=== PATIENT | female | born 1995 | race Caucasian/White ===

== ENCOUNTER 2019-09-02 20:41 | Emergency (ER) | payer SELFPAY ==
[2019-09-02 20:43] VITALS: BP 138/81; PULSE 94; RESP 20; TEMP 36.6; O2SAT 100
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
[2019-09-02 22:07] VITALS: PULSE 80; RESP 20; O2SAT 100
== END 2019-09-02 22:10 | disposition home or self-care (01) ==
PROVIDERS: Emergency Provider Emergency Medicine
DX: S91.011A Laceration without foreign body, right ankle, initial encounter (principal); Z87.440 Personal history of urinary (tract) infections; F17.200 Nicotine dependence, unspecified, uncomplicated; W26.8XXA Contact with other sharp object(s), not elsewhere classified, initial encounter
CPT/HCPCS: 12001; 99282

== ENCOUNTER 2020-03-06 16:33 | Emergency (ER) | payer OTHER, SELFPAY ==
[2020-03-06 16:43] VITALS: BP 132/72; PULSE 87; RESP 16; TEMP 36.8; O2SAT 100
--- NOTE | 2020-03-06 16:59 | ED.GENADULT ---
HPI - General Adult General Chief complaint: Ear Stated complaint: Ear pain Source: patient Mode of arrival: ambulatory Limitations: no limitations History of Present Illness HPI narrative: Patient is a 24-year-old female who presents complaining of left ear pain x2 to 3 days. Patient also reports sinus pain and pressure x2 weeks. She denies cough she denies fever, she denies known Covid exposure. complaint: Left ear pain Related Data Allergies Allergy/AdvReac Type Severity Reaction Status Date / Time clindamycin Allergy Mild Rash Verified 03/06/20 16:37 Review of Systems Review of Systems: Narrative: CONSTITUTIONAL: Denies fever, chills, or sweats. EYES: Denies visual changes, redness, or discharge. ENT: Denies rhinorrhea, congestion, sore throat, reports left otalgia and facial pressure. CARDIOVASCULAR: Denies chest pain, palpitations, or edema. RESPIRATORY: Denies cough or dyspnea. GASTROINTESTINAL: Denies abdominal pain, nausea, vomiting, or diarrhea. GENITOURINARY: Denies dysuria or hematuria. SKIN: Denies rash or itching. MUSCULOSKELETAL: Denies back pain, joint pain, or myalgia. NEUROLOGIC: Denies headache, numbness, dizziness, or weakness. PSYCHIATRIC: Denies anxiety or depression. [facility] Past Medical History Medical History Erythema nodosum UTI (urinary tract infection) Surgical History Surgical History History of cholecystectomy Hx of tympanostomy tubes Social History Social History Smoking status: Current every day smoker Gender identity (if verbalized by the patient): Female Exam Narrative: Exam Narrative: GENERAL: Well-appearing, well-nourished, and in no acute distress. HEAD: Normocephalic, atraumatic. EYES: No redness or drainage. ENT: Mucous membranes pink and moist. Nares congested. Dislodged tube in left ear canal, impacted with wax, TM bulging and injected. Throat normal. Maxillary sinus pressure with palpation. Uvula midline. NECK: AROM. Supple. No lymphadenopathy. CHEST: No respiratory distress. EXTREMITIES: Normal range of motion. SKIN: Warm, dry, no rash. NEURO: No focal deficits. Alert and oriented x3. Gait steady. PSYCH: Normal affect. No signs of depression or anxiety. Course Vital Signs Vital signs: Vital Signs Temperature 36.8 C 03/06/20 16:43 Pulse Rate 87 03/06/20 16:43 Respiratory Rate 16 03/06/20 16:43 Blood Pressure 132/72 03/06/20 16:43 Pulse Oximetry 100 03/06/20 16:43 Temperature 36.8 C 03/06/20 16:43 Pulse Rate 87 03/06/20 16:43 Respiratory Rate 16 03/06/20 16:43 Blood Pressure 132/72 03/06/20 16:43 Pulse Oximetry 100 03/06/20 16:43 Medical Decision Making MDM Narrative Medical decision making narrative: Patient has left otitis media, sinusitis to be treated with antibiotics at this time. Patient is stable for discharge to home with outpatient follow-up. Patient aware the need to follow-up with in 7 to 10 days for recheck with ENT or PCP. Differential Diagnosis Differential Diagnosis: Otitis media, sinusitis, strep throat Vital Signs Vital Signs: Vital Signs Temperature 36.8 C 03/06/20 16:43 Pulse Rate 87 03/06/20 16:43 Respiratory Rate 16 03/06/20 16:43 Blood Pressure 132/72 03/06/20 16:43 Pulse Oximetry 100 03/06/20 16:43 Temperature 36.8 C 03/06/20 16:43 Pulse Rate 87 03/06/20 16:43 Respiratory Rate 16 03/06/20 16:43 Blood Pressure 132/72 03/06/20 16:43 Pulse Oximetry 100 03/06/20 16:43 Critical Care Time Critical Care Time Critical Care Time: No Discharge Plan Discharge Clinical Impression: Otitis media Qualifiers: Otitis media type: suppurative Chronicity: acute Laterality: left Recurrence: non-recurrent Spontaneous tympanic membrane rupture: without spontaneous rupture Qualified Code(s): H
== END 2020-03-06 17:18 | disposition home or self-care (01) ==
PROVIDERS: Emergency Provider Nurse Practitioner; PCP Family Medicine
DX: H66.002 Acute suppurative otitis media without spontaneous rupture of ear drum, left ear (principal); J01.00 Acute maxillary sinusitis, unspecified; F17.200 Nicotine dependence, unspecified, uncomplicated
CPT/HCPCS: 99213; G0463

== ENCOUNTER 2020-03-07 14:36 | Emergency (ER) | payer OTHER, SELFPAY ==
[2020-03-07 14:41] VITALS: BP 129/69; PULSE 94; RESP 18; TEMP 36.4; O2SAT 99
--- NOTE | 2020-03-07 15:06 | ED.EAR ---
HPI - Ear Problem General Chief complaint: Ear Stated complaint: left ear pain Time Seen by Provider: 03/07/20 14:40 Source: patient and old records reviewed Mode of arrival: ambulatory Limitations: no limitations History of Present Illness HPI Narrative: Patient presents with chief complaint of left ear pain that has been worsening over the past 3 to 4 days. She reports mild symptoms and congestion for 2 weeks. Patient was seen in urgent care yesterday and prescribed Augmentin as well as ofloxacin drops. Patient has tympanostomy tubes were then placed by Dr. Rogers. Patient states that the tube worked itself out. She was started on oflaxacin drops and augmentin yesterday. She states she wants something for pain. Patient was instructed to reach out to her ENT. She has not done so. Related Data Allergies Allergy/AdvReac Type Severity Reaction Status Date / Time clindamycin Allergy Mild Rash Verified 03/06/20 16:37 Review of Systems Review of Systems: Narrative: CONSTITUTIONAL: Denies fever, chills, or sweats. EYES: Denies visual changes, redness, or discharge. ENT: Reports otalgia Denies rhinorrhea, congestion, sore throat CARDIOVASCULAR: Denies chest pain, palpitations, or edema. RESPIRATORY: Denies cough or dyspnea. GASTROINTESTINAL: Denies abdominal pain, nausea, vomiting, or diarrhea. GENITOURINARY: Denies dysuria or hematuria. SKIN: Denies rash or itching. MUSCULOSKELETAL: Denies back pain, myalgia, or joint pain NEUROLOGIC: Denies headache, numbness, dizziness, or weakness. PSYCHIATRIC: Denies anxiety or depression. [facility] Past Medical History Medical History Erythema nodosum UTI (urinary tract infection) Surgical History Surgical History History of cholecystectomy Hx of tympanostomy tubes Social History Social History Smoking status: Current every day smoker Gender identity (if verbalized by the patient): Female Exam Narrative: Exam Narrative: GENERAL: Well-appearing, well-nourished. HEAD: Normocephalic, atraumatic. EYES: PERRLA and EOMI. ENT: Mucous membranes moist. There is wax in ears, unable to see entire TM, there is erythema to left TM, no fluid drainage or inflammation of ear canal. No pain with outer ear movement. NECK: Supple. No adenopathy or masses. No vertebral tenderness or loss of ROM. CHEST: Clear to auscultation. No respiratory distress. No wheezes rales or rhonchi HEART: Regular rate and rhythm. Normal peripheral pulses. ABDOMEN: Soft, nontender, nondistended, normal active bowel sounds. No bruises noted. EXTREMITIES: No acute changes in ROM. No edema. SKIN: Warm, dry, no rash. NEURO: No focal deficits. Alert and oriented x3. PSYCH: Normal mood and affect. Course Vital Signs Vital signs: Vital Signs Temperature 97.6 F 03/07/20 14:41 Pulse Rate 94 03/07/20 14:41 Respiratory Rate 18 03/07/20 14:41 Blood Pressure 129/69 03/07/20 14:41 Pulse Oximetry 99 03/07/20 14:41 Temperature 97.6 F 03/07/20 14:41 Pulse Rate 94 03/07/20 14:41 Respiratory Rate 18 03/07/20 14:41 Blood Pressure 129/69 03/07/20 14:41 Pulse Oximetry 99 03/07/20 14:41 Medical Decision Making MDM Narrative Medical decision making narrative: Patientinstructed of the need to follow up with her ENT. Patient states she is sure she is not and is offered ibuprofen or toradol injection. Patient is not abx treatment failure as they were just started yesterday. Her vitals are stable and she is afebrile. Vital Signs Vital Signs: Vital Signs Temperature 97.6 F 03/07/20 14:41 Pulse Rate 94 03/07/20 14:41 Respiratory Rate 18 03/07/20 14:41 Blood Pressure 129/69 03/07/20 14:41 Pulse Oximetry 99 03/07/20 14:41 Temperature 97.6 F 03/07/20 14:41 Pulse Rate 94 03/07/20 14:41 Resp
[2020-03-07] MEDS: IBUPROFEN 600 MG TABLET PO (15:11)
== END 2020-03-07 15:35 | disposition home or self-care (01) ==
PROVIDERS: Emergency Provider Family Medicine; PCP Family Medicine
DX: H66.92 Otitis media, unspecified, left ear (principal); Z87.440 Personal history of urinary (tract) infections; F17.200 Nicotine dependence, unspecified, uncomplicated
CPT/HCPCS: 99283; A9270

== ENCOUNTER 2020-05-21 01:59 | Outpatient (CLI) | payer OTHER, SELFPAY ==
[2020-05-21 18:37] LABS: SARS-CoV-2 RNA PCR Negative
== END 2020-05-21 02:00 | disposition home or self-care (01) ==
LOC: ANHCOVIDDT 02:00
PROVIDERS: PCP Family Medicine; Visit Provider Otolaryngology
DX: Z01.812 Encounter for preprocedural laboratory examination (principal); Z20.822 Contact with and (suspected) exposure to COVID-19
CPT/HCPCS: C9803; U0003; U0005

== ENCOUNTER 2020-05-24 01:52 | Day surgery (SDC) | payer OTHER, SELFPAY ==
[2020-05-14 14:28] VITALS: BMI 23.0
--- NOTE | 2020-05-22 11:57 | PM.IMHP ---
H&P: HPI History of Present Illness Date/Time: 05/22/20 11:57 Chief Complaint: ETD Narrative: Kaelyn Rubi is a 24 year old female with bilateral etd. Presents for planned surgical procedures. Review of Systems Constitutional: Constitutional: Denies fatigue, Denies fever(s) and Denies lethargy Eyes: Eyes: Denies blurry vision and Denies change in vision ENT: Reports as per HPI Cardiovascular: Cardiovascular: Denies chest pain Respiratory: Respiratory: Denies cough Endocrine: Endocrine: Denies fatigue Hematologic/Lymphatic: Hematologic/Lymphatic: Denies easy bleeding, Denies easy bruising and Denies lymphadenopathy Allergic/Immunologic: Allergic/Immunologic: Denies seasonal rhinorrhea PMF Past Medical History Medical History Erythema nodosum UTI (urinary tract infection) Surgical History Surgical History History of cholecystectomy Hx of tympanostomy tubes Social History Social History (Updated 03/11/20 @ 08:35 by Rebekah Chanel [facility]) Smoking packs per day: 1 Smoking cigarettes per day: 20.0 Years smoked: 10 Smoking pack-years: 10.00 Smoking status: Current every day smoker Tobacco type: cigarettes Second hand tobacco smoke exposure: Yes Alcohol intake: former Substance use: never Gender identity (if verbalized by the patient): Female Spiritual care concerns: No Meds Home Medications and Allergies Home Medications Medication Instructions Recorded Confirmed Type ofloxacin 10 drp OTIC (EAR) BID 7 Days #10 ml 03/06/20 05/14/20 Rx naproxen 500 mg PO BID PRN #20 tablet 03/07/20 05/14/20 Rx lorazepam 0.5 mg tablet 0.5 mg PO TID PRN 04/23/20 05/14/20 History Allergies Allergy/AdvReac Type Severity Reaction Status Date / Time clindamycin Allergy Mild Rash Verified 05/14/20 14:26 Exam Const: General: cooperative, healthy appearing, comfortable, well developed and alert HENMT: Head: normal to inspection, normocephalic and atraumatic Ears: hearing grossly normal bilaterally, external ears normal, TM's abnormal bilaterally (Left retracted, right with t tube) and EAC's normal General nose exam: Normal external nose present, Normal nares present, No nasal polyps present, Normal nasal mucous membranes and turbinates present and Normal septum present Face and sinus: normal facial exam Mouth: Yes Normal oral and palatal mucosa present, Yes lip normal, Yes tongue normal, Yes oropharynx normal and Yes moist mucous membranes Teeth and gingiva: dentition normal and gingiva normal Throat: posterior oropharynx normal, tonsils normal and uvula midline Eyes: General: appearance normal, both eyes and all related structures Periorbital: periorbital findings normal Eyelids: eyelids normal Conjunctivae: conjunctivae normal Sclera: sclerae normal Neck: Neck: normal visual inspection, full ROM and no lymphadenopathy Thyroid: thyroid normal Lymphatic: no lymphadenopathy noted Resp: Effort & Inspection: normal respiratory effort and able to speak in complete sentences Cardio: Jugular venous distension: no JVD Neuro: Cranial nerves: Yes CN's II-XII intact bilaterally Assessment and Plan Assessment and plan (1) ETD (eustachian tube dysfunction): Code(s): H69.80 - Other specified disorders of Eustachian tube, unspecified ear Status: Acute (2) History of placement of ear tubes: Code(s): Z96.22 - Myringotomy tube(s) status Status: Acute Assessment and Plan: OR for right tube removal and replacement, left myringotomy with t tube. Risks discussed included damage to facial nerve, bleeding, change in hearing, cholesteatoma, need for further procedures, and damage to surrounding structures. The patient voiced understanding and agreed.
--- NOTE | 2020-05-23 15:08 | WPDANESEPPF ---
Anes - Initial Pre Proc Eval Procedure: Operation Date: 05/24/20 07:30 Proposed Procedures p Bilateral Myringotomy,Insertion Of T-Tubes - Odilon López MD Date/Time: 05/23/20 15:08 Surgeon: Odilon López MD Pre Op Diagnosis: chronic otitis media Patient Data Age: 24 Gender: F Height: 1.6 m Weight: 59 kg Allergies Allergy/AdvReac Type Severity Reaction Status Date / Time clindamycin Allergy Mild Rash Verified 05/14/20 14:26 Home Medications Medication Instructions Recorded Confirmed Type ofloxacin 10 drp OTIC (EAR) BID 7 Days #10 ml 03/06/20 05/14/20 Rx naproxen 500 mg PO BID PRN #20 tablet 03/07/20 05/14/20 Rx lorazepam 0.5 mg tablet 0.5 mg PO TID PRN 04/23/20 05/14/20 History Patient hx anesthesia problems: none Family hx anesthesia problems: none PMFSH Past Medical History Medical History (Updated 05/23/20 @ 15:08 by Adolfo Rapp MD) Anxiety Depression Erythema nodosum Tobacco abuse UTI (urinary tract infection) Surgical History Surgical History (Updated 04/23/20 @ 14:21 by Odilon López MD) History of cholecystectomy Hx of tympanostomy tubes Social History Social History (Updated 03/11/20 @ 08:35 by Rebekah Chanel CMA) Smoking packs per day: 1 Smoking cigarettes per day: 20.0 Years smoked: 10 Smoking pack-years: 10.00 Smoking status: Current every day smoker Tobacco type: cigarettes Second hand tobacco smoke exposure: Yes Alcohol intake: former Substance use: never Living arrangements: with family Gender identity (if verbalized by the patient): Female Spiritual care concerns: No Anes - Eval Final PreProcedure Day of Procedure 05/23/20 15:08 Patient weight: normal Heart: regular rate and rhythm Lungs: clear to auscultation and normal air movement Airway: Mallampati scale class II Neurological: alert and oriented Last oral intake: >/= 8 hours ASA classification: II Emergent: no Anesthetic plan: proceed Anesthesia type and monitoring: general GIVS Informed Consent: The patient's anesthetic plan and its attendant risks and benefits were discussed with the patient/family/POA. Questions were solicited and answers provided to the satisfaction of the patient/family/POA.
[2020-05-24] VITALS (8 sets, daily range): BP systolic 98–140; BP diastolic 57–74; PULSE 58–80; RESP 12–18; TEMP 36–36.8; O2SAT 97–100
--- NOTE | 2020-05-24 06:56 | WPDHPUPDATE1 ---
History and Physical Update Update Date/Time: 05/24/20 06:56 History and Physical has been reviewed, including an updated exam of the patient. There are NO changes in the patient's condition. Risks, benefits, and alternatives have been discussed and questions answered. Patient agrees to proceed with procedure.
[2020-05-24] MEDS: ACETAMINOPHEN 500 MG TABLET 1000 MG PO (07:06)
[2020-05-24] MEDS: LACTATED RINGERS 1,000 ML 30 ML IV CONT (07:10)
[2020-05-24] MEDS: CIPROFLOXACIN HCL 0.3% OP SOLN 2.5 ML BTL 4 DROP EACH EAR (08:13)
--- NOTE | 2020-05-24 08:37 | PM.PROC ---
Procedure Note - Detailed Date of procedure: 05/24/20 Pre-op diagnosis: chronic otitis media Post-op diagnosis: same Procedure performed: Right-sided T-tube removal with insertion of new T-tube Left-sided myringotomy with T-tube insertion Description of procedure: The patient was correctly identified and consent was verified in the preoperative holding area. The patient was then brought to the operating room a time-out was performed. General anesthesia was induced in mask ventilation with maintained. The right ear was examined without a microscope and a T-tube was noted anteriorly this was gently removed and new tube was inserted. Of note the perforation appeared larger than the size of the tube was likely abutting the annulus. The left ear was then examined noted to be severely retracted. A myringotomy was made and T-tube inserted. Drop were placed bilaterally. This marked the end of the procedure. I performed all dictated portions. Care the patient was turned over to anesthesiology. Anesthesia: GLMA Surgeon: Odilon López MD Complications: No immediate complications Condition: stable Disposition: PACU
[2020-05-24] MEDS: HYDROmorphone HCL INJ (*CRX) 1 MG/ML SYR 0.25 MG IV PUSH ×4 (08:48→09:03)
[2020-05-24] MEDS: fentaNYL CITRATE INJ (*CRX) 100 MCG/2 ML VIAL 25 MCG IV PUSH (09:00)
[2020-05-24] MEDS: ONDANSETRON INJ 4 MG/2 ML VIAL IV PUSH (09:06)
[2020-05-24] MEDS: oxyCODONE HCL (*CRX) 5 MG TAB IR PO (09:34)
== END 2020-05-24 10:13 | disposition home or self-care (01) ==
PROVIDERS: PCP Family Medicine; Visit Provider Otolaryngology
PROC: (CPT 69436; principal; 2020-05-24 07:30)
DX: H66.93 Otitis media, unspecified, bilateral (principal); F41.8 Other specified anxiety disorders; F17.210 Nicotine dependence, cigarettes, uncomplicated
CPT/HCPCS: 69436; A9270; J1100; J1170; J2250; J2405; J2704; J3010; J7120

== ENCOUNTER 2020-06-01 15:30 | Emergency (ER) | payer OTHER, SELFPAY ==
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
[2020-06-01 15:40] VITALS: BP 151/70; PULSE 100; RESP 18; TEMP 36.9; O2SAT 96
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
[2020-06-01 17:07] VITALS: BP 112/65; PULSE 88; RESP 18; O2SAT 97
== END 2020-06-01 17:08 | disposition home or self-care (01) ==
LOC: ANHED 17:04
PROVIDERS: Emergency Provider General Practice; PCP Family Medicine
DX: S61.451A Open bite of right hand, initial encounter (principal); S71.151A Open bite, right thigh, initial encounter; S81.051A Open bite, right knee, initial encounter; S60.511A Abrasion of right hand, initial encounter; Y04.1XXA Assault by human bite, initial encounter
CPT/HCPCS: 73080; 73130; 99284

== ENCOUNTER → 2020-07-16 00:27 | Outpatient (CLI) | payer OTHER, SELFPAY ==
[2020-07-16 18:32] LABS: SARS-CoV-2 RNA PCR Negative
== END ==
PROVIDERS: PCP Family Medicine; Visit Provider Otolaryngology
DX: Z01.812 Encounter for preprocedural laboratory examination (principal); Z20.822 Contact with and (suspected) exposure to COVID-19
CPT/HCPCS: C9803; U0003; U0005

== ENCOUNTER 2020-07-19 01:22 | Day surgery (SDC) | payer OTHER, SELFPAY ==
[2020-07-10 12:40] VITALS: BMI 21.9
--- NOTE | 2020-07-18 09:22 | PM.IMHP ---
H&P: HPI History of Present Illness Date/Time: 07/18/20 09:22 Patient presents for planned septoplasty and turbinate reduction for nasal obstruction. Reports no new symptoms or changes in medical history. Chief Complaint: Nasal obstruction, inferior turbinate hypertrophy, septal deviation, Review of Systems Constitutional: Constitutional: Denies fatigue, Denies fever(s) and Denies lethargy Eyes: Eyes: Denies blurry vision and Denies change in vision ENT: Reports as per HPI Cardiovascular: Cardiovascular: Denies chest pain Respiratory: Respiratory: Denies cough Endocrine: Endocrine: Denies fatigue Hematologic/Lymphatic: Hematologic/Lymphatic: Denies easy bleeding, Denies easy bruising and Denies lymphadenopathy Allergic/Immunologic: Allergic/Immunologic: Denies seasonal rhinorrhea [facility] Past Medical History Medical History (Updated 06/04/20 @ 14:22 by Odilon López MD) Anxiety Depression Erythema nodosum Tobacco abuse UTI (urinary tract infection) Surgical History Surgical History (Updated 04/23/20 @ 14:21 by Odilon López MD) History of cholecystectomy Hx of tympanostomy tubes Social History Social History (Updated 03/11/20 @ 08:35 by Rebekah Chanel [facility]) Smoking packs per day: 1 Smoking cigarettes per day: 20.0 Years smoked: 11 Smoking pack-years: 11.00 Smoking status: Current every day smoker Tobacco type: cigarettes Second hand tobacco smoke exposure: Yes Alcohol intake: former Substance use: never Gender identity (if verbalized by the patient): Female Spiritual care concerns: No Meds Home Medications and Allergies Home Medications Medication Instructions Recorded Confirmed Type naproxen 500 mg PO BID PRN #20 tablet 03/07/20 07/10/20 Rx Allergies Allergy/AdvReac Type Severity Reaction Status Date / Time clindamycin Allergy Mild Rash Verified 07/10/20 12:41 Exam Const: General: cooperative, healthy appearing, comfortable, well developed and alert HENMT: Head: normal to inspection, normocephalic and atraumatic Ears: hearing grossly normal bilaterally, external ears normal, TM's normal bilaterally and EAC's normal General nose exam: Normal external nose present, Normal nares present and Other nasal findings present ( Inferior turbinate hypertrophy deviated nasal septum) Face and sinus: normal facial exam Mouth: Yes Normal oral and palatal mucosa present, Yes lip normal, Yes tongue normal, Yes oropharynx normal and Yes moist mucous membranes Teeth and gingiva: dentition normal and gingiva normal Throat: posterior oropharynx normal, tonsils normal and uvula midline Eyes: General: appearance normal, both eyes and all related structures Periorbital: periorbital findings normal Eyelids: eyelids normal Conjunctivae: conjunctivae normal Sclera: sclerae normal Neck: Neck: normal visual inspection, full ROM and no lymphadenopathy Thyroid: thyroid normal Lymphatic: no lymphadenopathy noted Resp: Effort & Inspection: normal respiratory effort and able to speak in complete sentences Cardio: Jugular venous distension: no JVD Neuro: Cranial nerves: Yes CN's II-XII intact bilaterally Assessment and Plan Assessment and plan (1) Nasal obstruction: Code(s): J34.89 - Other specified disorders of nose and nasal sinuses Status: Acute Assessment and Plan: plan is for the operating room for endoscopic assisted septoplasty and inferior turbinate reduction submucosally with micro debrider. Risks and benefits were discussed in great detail including septal perforation need for further procedures failure to resolve symptoms 5-7 days of splint usage and turbinate regrowth as well as blindness change in vision damage to brain and CSF leakage. Patient voiced understanding of these risks and agreed. (2) Hypertrophy of both inferior nasal turbinates: Code(s): J34.3 - Hypertrophy of nasal turbinates Status: Acute (3) Nasal septal deviati
[2020-07-19] VITALS (7 sets, daily range): BP systolic 115–142; BP diastolic 67–88; PULSE 65–87; RESP 10–18; TEMP 36.1–37; O2SAT 97–100
--- NOTE | 2020-07-19 07:01 | WPDHPUPDATE1 ---
History and Physical Update Update Date/Time: 07/19/20 07:01 History and Physical has been reviewed, including an updated exam of the patient. There are NO changes in the patient's condition. Risks, benefits, and alternatives have been discussed and questions answered. Patient agrees to proceed with procedure.
[2020-07-19] MEDS: LACTATED RINGERS 1,000 ML 30 ML IV CONT ×2 (07:30→09:20)
--- NOTE | 2020-07-19 07:30 | WPDANESEPPF ---
Anes - Initial Pre Proc Eval Procedure: Operation Date: 07/19/20 08:00 Proposed Procedures p Septoplasty, - Odilon López MD s Bilateral Inferior Turbinectomy - Odilon López MD Date/Time: 07/19/20 07:30 Surgeon: Odilon López MD Pre Op Diagnosis: Nasal Septal Devation turbinate Hypertrophy Patient Data Age: 25 Gender: F Height: 5 ft 4 in Weight: 58 kg Allergies Allergy/AdvReac Type Severity Reaction Status Date / Time clindamycin Allergy Intermediate Hives Verified 07/19/20 06:40 Home Medications Medication Instructions Recorded Confirmed Type naproxen 500 mg PO BID PRN #20 tablet 03/07/20 07/19/20 Rx lorazepam 0.5 mg PO TID 07/19/20 07/19/20 History Patient hx anesthesia problems: none Family hx anesthesia problems: none PMFSH Past Medical History Medical History (Updated 06/04/20 @ 14:22 by Odilon López MD) Anxiety Depression Erythema nodosum Tobacco abuse UTI (urinary tract infection) Surgical History Surgical History (Updated 04/23/20 @ 14:21 by Odilon López MD) History of cholecystectomy Hx of tympanostomy tubes Social History Social History (Updated 03/11/20 @ 08:35 by Rebekah Chanel CMA) Smoking packs per day: 1 Smoking cigarettes per day: 20.0 Years smoked: 11 Smoking pack-years: 11.00 Smoking status: Current every day smoker Tobacco type: cigarettes Second hand tobacco smoke exposure: Yes Alcohol intake: former Substance use: never Living arrangements: with friend(s) Gender identity (if verbalized by the patient): Female Spiritual care concerns: No Anes - Eval Final PreProcedure Day of Procedure 07/19/20 07:30 Patient weight: normal Heart: regular rate and rhythm Lungs: clear to auscultation Airway: Mallampati scale class II Neurological: alert and oriented Last oral intake: >/= 8 hours ASA classification: II Emergent: no Anesthetic plan: proceed Anesthesia type and monitoring: general ETT and standard monitoring Informed Consent: The patient's anesthetic plan and its attendant risks and benefits were discussed with the patient/family/POA. Questions were solicited and answers provided to the satisfaction of the patient/family/POA.
[2020-07-19] MEDS: ACETAMINOPHEN 500 MG TABLET 1000 MG PO (07:35)
[2020-07-19] MEDS: ceFAZolin 2 GM/D5W 50 ML 2 GM/50 ML BAG IVPB (07:46)
[2020-07-19] MEDS: OXYMETAZOLINE HCL 0.05% NAS 15 ML BTL (*BKC) 1 SPRAY NASAL (07:56)
[2020-07-19] MEDS: LIDO 1%/EPINEPHRINE 1:100,000 50 ML VIAL INFILTRATE (07:57)
[2020-07-19] MEDS: fentaNYL CITRATE INJ (*CRX) 100 MCG/2 ML VIAL 25 MCG IV PUSH ×8 (09:29→09:58)
--- NOTE | 2020-07-19 09:34 | P.OP_ITS ---
Procedure Note - Detailed Date of procedure: 07/19/20 Pre-op diagnosis: Nasal Septal Devation turbinate Hypertrophy Post-op diagnosis: same Procedure performed: 1. Endoscopic assisted septoplasty 2. Endoscopic turbinate submucosal resection and outfracture Description of procedure: The patient was correctly identified and consent was verified in the preoperative holding area. The patient was then brought to the operating room and a time-out was performed. General anesthesia was induced and endotracheal tube was secured the patient's airway and taped to the left lower lip. Afrin-soaked pledgets were placed in the bilateral nasal passages and allowed to sit for 5 minutes. The pledgets were then removed. Under endoscopic guidance the bilateral nasal passages were examined. 6 cc of 1% lidocaine with 1 100,000 parts epinephrine was injected deep to the bilateral septum in the submucoperichondrial plane as well as anterior portion of the inferior turbinates. A [place] type incision was made using a 15 blade dissection of the bilateral mucoperichondrial flaps occurred with a 7 Vincentian suction. No perforations were noted. The deviated portions of the septum removed with combination of endoscopic scissors Jennifer forceps and Rohit Fernandez forceps. The septum was then closed in its Angel incision with 2 interrupted 5 0 fast gut sutures. Did left inferior turbinate was entered anteriorly with the microdebrider with turbinate blade and debrided in the submucosal plane. This was then outfractured. Bilateral mulberry tips were also debrided. A similar procedure was performed on the right inferior turbinate. Bleeding was acceptable. Rodriguez splints were placed and sutured anteriorly with a 3 0 mattressed nylon suture. Hemostasis was excellent. This marked end of the procedure. Hemostasis was adequate. Care the patient was turned over to Anesthesiology. I performed all dictated portions of the procedure. Anesthesia: GETA Surgeon: Odilon López MD Estimated blood loss (mL): 10 Complications: No immediate complications Condition: stable Disposition: PACU
[2020-07-19] MEDS: oxyCODONE HCL (*CRX) 5 MG TAB IR PO (10:24)
--- NOTE | 2020-07-19 15:37 | WPDANESEFPP ---
Anes - Eval Final PreProcedure Day of Procedure 07/19/20 15:37 Patient weight: normal Heart: regular rate and rhythm Lungs: clear to auscultation and normal air movement Airway: Mallampati scale class II Neurological: alert and oriented Last oral intake: 4 hours ASA classification: II Emergent: yes Anesthetic plan: proceed Anesthesia type and monitoring: general ETT and standard monitoring Informed Consent: The patient's anesthetic plan and its attendant risks and benefits were discussed with the patient/family/POA. Questions were solicited and answers provided to the satisfaction of the patient/family/POA.
--- NOTE | 2020-07-19 16:38 | SUR.PHASEII ---
1000; PT INTO [facility] PER STRETCHER. PT AWAKE, NASAL DRIP PAD INTACT. SLIGHT BLEEDING NOTED. PT HAS BEEN CRYING, EYES PUFFY. UP TO RECLINER. GAIT STEADY. 1025; BOYFRIEND HERE. PT STATES HEADACHE 7/10. ICE PACK ON FORHEAD. OXYCODONE GIVEN. PT SPITTING OUT SM AMT BLOODY DRAINAGE FROM BACK OF THROAT. 1100; PT AWAKE AND ALERT. RESTING. STATES HEADACHE 6/10. SM AMT BLEEDING TO DRIP PAD. 1125; PT STATES SHE WANTS TO GO HOME. DRIP PAD CHANGED ONCE WHILE IN [facility]. SPITTING OUT SM AMT BLOODY MIXED WITH CLEAR SPUTUM DRAINAGE FROM BACK OF THROAT. 1140; PT STATES SHE IS READY TO GO HOME. PT WANTING TO WEAR GOWN HOME. DRIP PAD SM AMT DRAINAGE. BOYFRIEND WITH PT. STATES HEADACHE TOLERABLE. MEETS DISCHARGE NAOMIA
== END 2020-07-19 11:40 | disposition home or self-care (01) ==
PROVIDERS: PCP Family Medicine; Visit Provider Otolaryngology
PROC: (CPT 30520; principal; 2020-07-19 08:00)
PROC: (CPT 30520; 2020-07-19 08:00)
DX: J34.89 Other specified disorders of nose and nasal sinuses (principal); J34.3 Hypertrophy of nasal turbinates; J34.2 Deviated nasal septum; F41.8 Other specified anxiety disorders; L53.9 Erythematous condition, unspecified; F17.210 Nicotine dependence, cigarettes, uncomplicated
CPT/HCPCS: 30520; 30140; A9270; J0330; J0690; J1100; J1170; J2250; J2405; J2704; J3010; J7120

== ENCOUNTER 2020-07-19 15:05 | Day surgery (SDC) | payer OTHER, SELFPAY ==
--- NOTE | 2020-07-19 15:24 | HP_ITS ---
This report was moved to the correct visit, [id number] on 09/20/20. Original report was signed by Odilon López MD on 07/19/20 1524. H&P: HPI History of Present Illness Date/Time: 07/19/20 15:22 patient is status post endoscopic septoplasty and turbinate reduction. Returns to ER with significant bleeding. Chief Complaint: Postoperative hemorrhage, epistaxis Review of Systems Constitutional: Constitutional: Denies fatigue, Denies fever(s) and Denies lethargy Eyes: Eyes: Denies blurry vision and Denies change in vision ENT: Reports as per HPI Cardiovascular: Cardiovascular: Denies chest pain Respiratory: Respiratory: Denies cough Endocrine: Endocrine: Denies fatigue Hematologic/Lymphatic: Hematologic/Lymphatic: Denies easy bleeding, Denies easy bruising and Denies lymphadenopathy Allergic/Immunologic: Allergic/Immunologic: Denies seasonal rhinorrhea [facility] Past Medical History Medical History (Updated 07/19/20 @ 15:23 by Odilon López MD) Anxiety Depression Erythema nodosum Tobacco abuse UTI (urinary tract infection) Surgical History Surgical History (Updated 04/23/20 @ 14:21 by Odilon López MD) History of cholecystectomy Hx of tympanostomy tubes Social History Social History (Updated 03/11/20 @ 08:35 by Rebekah Chanel [facility]) Smoking packs per day: 1 Smoking cigarettes per day: 20.0 Years smoked: 11 Smoking pack-years: 11.00 Smoking status: Current every day smoker Tobacco type: cigarettes Second hand tobacco smoke exposure: Yes Alcohol intake: former Substance use: never Gender identity (if verbalized by the patient): Female Spiritual care concerns: No Meds Home Medications and Allergies Home Medications Medication Instructions Recorded Confirmed Type naproxen 500 mg PO BID PRN #20 tablet 03/07/20 07/19/20 Rx cefuroxime axetil 250 mg PO BID #14 tablet 07/19/20 Rx lorazepam 0.5 mg PO TID 07/19/20 07/19/20 History oxycodone 5 mg PO Q12H PRN #14 tablet 07/19/20 Rx Allergies Allergy/AdvReac Type Severity Reaction Status Date / Time clindamycin Allergy Intermediate Hives Verified 07/19/20 14:58 Exam Const: General: cooperative, healthy appearing, comfortable, well developed and alert HENMT: Head: normal to inspection, normocephalic and atraumatic Ears: hearing grossly normal bilaterally, external ears normal, TM's normal bilaterally and EAC's normal General nose exam: Normal external nose present, Normal nares present and Other nasal findings present (Significant bleeding and clots located bilaterally splints in place.) Face and sinus: normal facial exam Mouth: Yes Normal oral and palatal mucosa present, Yes lip normal, Yes tongue normal, Yes oropharynx normal and Yes moist mucous membranes Teeth and gingiva: dentition normal and gingiva normal Throat: posterior oropharynx normal, tonsils normal and uvula midline Eyes: General: appearance normal, both eyes and all related structures Periorbital: periorbital findings normal Eyelids: eyelids normal Conjunctivae: conjunctivae normal Sclera: sclerae normal Neck: Neck: normal visual inspection, full ROM and no lymphadenopathy Thyroid: thyroid normal Lymphatic: no lymphadenopathy noted Resp: Effort & Inspection: normal respiratory effort and able to speak in complete sentences Cardio: Jugular venous distension: no JVD Neuro: Cranial nerves: Yes CN's II-XII intact bilaterally Assessment and Plan Assessment and plan (1) Postoperative haemorrhage: Status: Acute Assessment and Plan: Plan is for the OR fo
--- NOTE | 2020-07-19 15:25 | HP_ITS ---
This report was moved to the correct visit, [id number] on 09/20/20. Original report was signed by Odilon López MD on 07/19/20 6024. History and Physical Update Update Date/Time: 07/19/20 15:24 History and Physical has been reviewed, including an updated exam of the patient. There are NO changes in the patient's condition. Risks, benefits, and alternatives have been discussed and questions answered. Patient agrees to proceed with procedure. This dictation may have been done utilizing a voice recognition system. Attempts have been made to correct errors. However, there may be uncorrected grammatical, spelling, and recognition errors present. Report Initialized date/time: Odilon López MD 07/19/20 / 1525 Electronically signed by: Odilon López MD 07/19/20 [id number] [facility]
[2020-07-19] MEDS: OXYMETAZOLINE HCL 0.05% NAS 15 ML BTL (*BKC) 1 SPRAY NASAL (16:46)
[2020-07-19 17:30] VITALS: BP 145/102; PULSE 99; RESP 12; TEMP 36.6; O2SAT 100
[2020-07-19] MEDS: LACTATED RINGERS 1,000 ML 30 ML IV CONT (17:30)
[2020-07-19 17:45] VITALS: BP 145/102; PULSE 99; RESP 12; TEMP 36.6; O2SAT 100
[2020-07-19] MEDS: HYDROmorphone HCL INJ (*CRX) 1 MG/ML SYR 0.25 MG IV PUSH ×4 (17:57→18:12)
[2020-07-19 18:00] VITALS: BP 141/88; PULSE 65; RESP 12; O2SAT 99
[2020-07-19 18:10] VITALS: BP 145/84; PULSE 68; RESP 12; O2SAT 97
[2020-07-19 18:15] VITALS: BP 141/84; PULSE 68; RESP 20
--- NOTE | 2020-07-19 18:26 | PM.PROC ---
Procedure Note - Detailed Date of procedure: 07/19/20 Pre-op diagnosis: Post op bleeding Post-op diagnosis: same Procedure performed: Control of epistaxis Description of procedure: The patient was correctly identified and consent was verified in the preoperative holding area. The patient was brought to the operative a time-out was performed. Anesthesia was induced and endotracheal tube was secured the patient's airway and taped to the left lower lip. Patient was then prepped and draped for the aforementioned procedure. The Rodriguez splints were removed. The bilateral nasal passages were examined and scant bleeding from the bilateral inferior turbinates were noted. Clot was suctioned. These (the inferior turbinates) were cauterized using suction Bovie electrocautery. Following the procedure hemostasis was noted to be excellent. The bilateral Rodriguez splints were placed and sutured anteriorly with 3 0 mattressed nylon suture. Care the patient was turned over to Anesthesiology. I performed all dictated portions the procedure. Anesthesia: GETA Surgeon: Odilon López MD Estimated blood loss (mL): 10 Drains: No Packing: No Pathology: none sent Complications: No immediate complications Condition: stable Disposition: PACU Findings: Bleeding from the bilateral inferior turbinates left greater than right
[2020-07-19 18:45] VITALS: BP 128/87; PULSE 68; RESP 20
== END 2020-07-19 19:18 | disposition home or self-care (01) ==
PROVIDERS: PCP Family Medicine; Visit Provider Otolaryngology
PROC: (CPT 30801; principal; 2020-07-19 17:00)
DX: J95.831 Postprocedural hemorrhage of a respiratory system organ or structure following other procedure (principal); R04.0 Epistaxis; L53.9 Erythematous condition, unspecified; Y83.8 Other surgical procedures as the cause of abnormal reaction of the patient, or of later complication, without mention of misadventure at the time of the procedure; F41.8 Other specified anxiety disorders; F17.210 Nicotine dependence, cigarettes, uncomplicated
CPT/HCPCS: 30801; A9270; J0330; J1100; J1170; J2405; J2704; J7120

== ENCOUNTER 2020-10-24 12:54 | Emergency (ER) | payer OTHER, SELFPAY ==
[2020-10-24 13:03] VITALS: BP 128/73; PULSE 70; RESP 16; TEMP 36.4; O2SAT 99
--- NOTE | 2020-10-24 13:32 | ED.GENADULT ---
HPI - General Adult General Chief complaint: Upper Respiratory Infection Stated complaint: right ear pain/sore throat/poison isaías r side Source: patient and RN notes reviewed Mode of arrival: ambulatory Limitations: no limitations History of Present Illness HPI narrative: 25-year-old female presents with complaints of intermittent right otalgia for the past 10 days. Kaelyn reports increasing RT otalgia with feeling as if fluid in ear and being exposed to a family member who has strep throat 2-3 days ago. No treatment. Denies drainage, decreased hearing, or tinnitus. Denies injury to ear. No high fevers, drooling, neck or throat swelling. Pain is bilateral. Hurts to swallow. Exacerbation factors consist of swimming. Rhinorrhea and nasal congestion. No voice change. No nausea, vomiting, or abdominal pain. Tolerating liquids well. Denies dyspnea, difficulty swallowing, jaw pain, dental pain, facial pain, foreign body sensation, and rash. LMP 10/20/20. Remains active. The patient reports she has not been diagnosed with COVID-19. The patient reports she is not waiting for the results of a COVID-19 lab test. The patient reports she does not have chills, weakness, or fatigue. The patient reports she does not have a new or worsening cough. Denies chest pain. The patient reports she does not have any loss of taste or smell, and diarrhea. Denies recent traveling. Denies concerns for COVID-19 or exposures. At this time, the patient is not suspected of having COVID-19. Complaints of red, itching, and raised rash to the right side for 1 day. Kaelyn reports swimming in river water prior to the rash. Denies new changes in personal hygiene products or laundry detergent. No new foods or medications. No swelling, burning, bleeding, or drainage. Denies fever, chills, headaches, myalgia, facial swelling, or tongue swelling. Some parts of this dictation were generated by voice recognition software and may contain typographical and/or grammatical inaccuracies. Related Data Home Medications Medication Instructions Recorded Confirmed alprazolam 10/24/20 naproxen 10/24/20 Allergies Allergy/AdvReac Type Severity Reaction Status Date / Time clindamycin Allergy Intermediate Hives Verified 10/27/20 01:10 Review of Systems Review of Systems: Narrative: CONSTITUTIONAL: Denies fever, chills, sweats. EYES: Denies visual changes, redness, discharge. ENT: Complains of rhinorrhea, otalgia, sore throat, congestion. CARDIOVASCULAR: Denies chest pain, palpitations, edema. RESPIRATORY: Denies dyspnea, wheezing, cough. GASTROINTESTINAL: Denies abdominal pain, nausea, vomiting, diarrhea. GENITOURINARY: Denies dysuria, hematuria, abnormal discharge. SKIN: Complains of red, itching, and raised rash to the right side. MUSCULOSKELETAL: Denies acute back pain, joint pain, or myalgia. NEUROLOGIC: Denies numbness or focal weakness. PSYCHIATRIC: Denies anxiety or depression. All systems reviewed & are unremarkable except as noted in HPI and below. [facility] Past Medical History Medical History Anxiety Depression Erythema nodosum Tobacco abuse UTI (urinary tract infection) Surgical History Surgical History History of cholecystectomy Hx of tympanostomy tubes Family History Family History (Updated 10/30/20 @ 13:42 by NIGEL Olvera) Father , suicide after murdering spouse Kaelyn's mother Unknown family medical history Mother , murdered by spouse prior to him killing himself per Kaelyn's mother Unknown family medical history Social History Social History Smoking packs per day: 1 Smoking cigarettes per day: 20.0 Years smoked: 11 Smoking pack-years: 11.00 Smoking status: Current every day smoker Tobacco type: cigarettes Se
== END 2020-10-24 14:00 | disposition home or self-care (01) ==
PROVIDERS: Emergency Provider Nurse Practitioner Family; PCP Family Medicine
DX: H66.3X1 Other chronic suppurative otitis media, right ear (principal); J02.9 Acute pharyngitis, unspecified; L98.9 Disorder of the skin and subcutaneous tissue, unspecified; F17.210 Nicotine dependence, cigarettes, uncomplicated; F41.9 Anxiety disorder, unspecified
CPT/HCPCS: 87081; 87880; 99213; G0463

== ENCOUNTER 2020-10-27 01:00 | Emergency (ER) | payer OTHER, SELFPAY ==
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
[2020-10-27 01:05] VITALS: BP 129/74; PULSE 100; RESP 14; O2SAT 93
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
[2020-10-27 04:06] VITALS: BP 128/78; PULSE 88; RESP 16; O2SAT 99
== END 2020-10-27 04:06 | disposition home or self-care (01) ==
PROVIDERS: Emergency Provider Emergency Medicine; PCP Family Medicine
DX: F41.9 Anxiety disorder, unspecified (principal); F32.9 Major depressive disorder, single episode, unspecified; Z87.440 Personal history of urinary (tract) infections; F17.210 Nicotine dependence, cigarettes, uncomplicated; Y04.1XXA Assault by human bite, initial encounter
CPT/HCPCS: 73140; 99283

== ENCOUNTER 2021-12-05 15:37 | Emergency (ER) | payer OTHER, SELFPAY ==
[2021-12-05 15:48] VITALS: BP 127/88; PULSE 91; RESP 16; TEMP 36.2; O2SAT 100
[2021-12-05 16:18] LABS: Basophils Absolute Auto 0.1 K/mm3 (0.0-0.1); Basophils Percent Auto 0.8 % (0.2-1.2); Eosinophils Absolute Auto 0.1 K/mm3 (0-0.3); Eosinophils Percent Auto 1.5 % (0-4.4); Hematocrit 42.1 % (37.0-47.0); Hemoglobin 14.2 g/dL (12.0-15.0); Immature Granulocyte Absolute 0.03 K/mm3 (0.00-0.031); Immature Granulocyte Percent A 0.4 % (0-0.5); Lymphocytes Absolute Auto 2.53 K/mm3 (0.9-3.2); Lymphocytes Percent Auto 29.6 % (18.3-44.2); Mean Corpuscular HGB Conc 33.7 g/dl (32-36); Mean Corpuscular Hemoglobin 32.6 pg (26-34); Mean Corpuscular Volume 96.8 fl (80-100); Monocytes Absolute Auto 0.7 K/mm3 (0.1-0.6); Monocytes Percent Auto 7.6 % (2.6-8.5); Neutrophils Absolute Auto 5.2 K/mm3 (1.3-6.7); Neutrophils Percent Auto 60.1 % (45.5-73.1); Platelet Count Result 306 k/mm3 (150-375); Red Blood Count 4.35 M/mm3 (4.2-5.4); Red Cell Distribution Width 11.9 % (11.5-14.5); White Blood Count 8.6 K/mm3 (4.5-10.0)
[2021-12-05 16:25] LABS: Alanine Aminotransferase 15 U/L (6-35); Albumin Level 4.8 g/dL (3.5-5.1); Alkaline Phosphatase 67 U/L (38-126); Anion Gap 12 mmol/L (8-16); Aspartate Amino Transferase 24 U/L (14-36); Bilirubin,Total 0.5 mg/dL (0.2-1.3); Blood Urea Nitrogen 13 mg/dL (7-17); Calcium 9.5 mg/dL (8.4-10.2); Carbon Dioxide 26 mmol/L (22-30); Chloride 101 mmol/L (98-107); Estimated CRCL calculation 90 ml/min; Estimated Glomerular Filt Rate > 60; Glucose 86 mg/dL (65-110); Potassium 4.2 mmol/L (3.4-5.0); Sodium 139 mmol/L (137-145)
[2021-12-05 16:33] LABS: Appearance Urine Slightly Cloudy (Clear); Bilirubin Urine Negative (Negative); Blood Urine Negative (Negative); Color Urine Yellow (Yellow); Glucose Urine UA Negative (Negative); Ketones Urine Negative (Negative); Leukocyte Esterase Ur Negative LEU/UL (Negative); Nitrate Urine Negative (Negative); Protein Urine Negative (Negative); Urobilinogen Urine 0.2 mg/dL (<2.0)
[2021-12-05 16:45] LABS: Bacteria Urine Trace /hpf; Mucus Urine Rare /lpf; Squamous Epithelial Cell Urine Occasional /hpf (Few); WBC Urine 0-3 /hpf
[2021-12-05 16:54] LABS: Add Urine Microscopic? YES
--- NOTE | 2021-12-05 17:00 | ED.ABDPAIN ---
HPI - Abdominal Pain General Chief Complaint: Abdominal Pain Stated Complaint: ruq pain goes to belly button and around back History of Present Illness HPI narrative: 26-year-old female presents the emergency room with complaints of right-sided abdominal pain radiates into her right flank. Patient states the pain has been present for over a week, starting after she went white water rafting. Patient states that when she was rafting she spent the majority the time rowing with her right arm and right side. Patient states the pain is worse when she rotates her trunk to the right. Denies any nausea vomiting diarrhea or constipation. Denies fever. Related Data Home Medications Medication Instructions Recorded Confirmed alprazolam 1 mg tablet 1 mg PO DAILY 10/24/20 12/05/21 Allergies Allergy/AdvReac Type Severity Reaction Status Date / Time clindamycin Allergy Intermediate Hives Verified 12/05/21 15:51 Review of Systems Review of Systems: CONSTITUTIONAL: Denies fever, chills, or sweats. EYES: Denies visual changes, redness, or discharge. ENT: Denies rhinorrhea, congestion, sore throat, or otalgia. CARDIOVASCULAR: Denies chest pain, palpitations, or edema. RESPIRATORY: Denies cough or dyspnea. GASTROINTESTINAL: Reports abdominal pain GENITOURINARY: Denies dysuria or hematuria. SKIN: Denies rash or itching. MUSCULOSKELETAL: Denies back pain, joint pain, or myalgia. NEUROLOGIC: Denies headache, numbness, dizziness, or weakness. PSYCHIATRIC: Denies anxiety or depression. [facility] Past Medical History Medical History Anxiety Depression Erythema nodosum Tobacco abuse UTI (urinary tract infection) Surgical History Surgical History History of cholecystectomy Hx of tympanostomy tubes Family History Family History Father , suicide after murdering spouse Kaelyn's mother Unknown family medical history Mother , murdered by spouse prior to him killing himself per Kaelyn's mother Unknown family medical history Social History Social History Smoking packs per day: 1 Smoking cigarettes per day: 20.0 Years smoked: 11 Smoking pack-years: 11.00 Smoking status: Current every day smoker Tobacco type: cigarettes Second hand tobacco smoke exposure: Yes Alcohol intake: former Substance use: never Gender identity (if verbalized by the patient): Female Spiritual care concerns: No Exam Narrative: GENERAL: Well-appearing, well-nourished, no physical limitations, and in no acute distress. HEAD: Normocephalic, atraumatic. EYES: Conjunctivae normal, PERRLA and EOMI. CHEST: Clear to auscultation. No respiratory distress. No wheezes rales or rhonchi. No tenderness. HEART: Regular rate and rhythm. No murmur heard. Normal peripheral pulses. ABDOMEN: Soft, right-sided tenderness, nondistended, normal active bowel sounds. Negative heel strike. Negative psoas and obturator signs. BACK: No CVA tenderness; No cervical/thoracic/lumbar tenderness, step-offs, bony abnormality; FROM EXTREMITIES: Normal range of motion. No edema. No clubbing or cyanosis SKIN: Warm, dry, no rash. No noted wounds NEURO: No focal deficits. Alert and oriented x3. MAEW. CN's II-XI intact bilaterally, normal gait PSYCH: Cooperative. Normal mood and affect. Course Vital Signs Vital signs: Vital Signs Temperature 36.2 C L 12/05/21 15:48 Pulse Rate 91 12/05/21 15:48 Respiratory Rate 16 12/05/21 15:48 Blood Pressure 127/88 12/05/21 15:48 Pulse Oximetry 100 12/05/21 15:48 Temperature 36.2 C L 12/05/21 15:48 Pulse Rate 91 12/05/21 15:48 Respiratory Rate 16 12/05/21 15:48 Blood Pressure 127/88 12/05/21 15:48 Pulse Oximetry 100 12/05/21 15:48 MDM - Abdominal Pain Lab
[2021-12-05 17:27] VITALS: BP 135/87; PULSE 82; RESP 16; O2SAT 100
== END 2021-12-05 17:28 | disposition home or self-care (01) ==
LOC: ANHED 17:10
PROVIDERS: Emergency Medicine; Emergency Provider Nurse Practitioner Family; PCP Family Medicine
DX: S39.011A Strain of muscle, fascia and tendon of abdomen, initial encounter (principal); F41.9 Anxiety disorder, unspecified; F32.A Depression, unspecified; Z87.440 Personal history of urinary (tract) infections; F17.210 Nicotine dependence, cigarettes, uncomplicated; X50.3XXA Overexertion from repetitive movements, initial encounter; Y93.16 Activity, rowing, canoeing, kayaking, rafting and tubing
CPT/HCPCS: 36415; 80053; 81001; 81025; 85025; 99283